=== PATIENT | female | born 1945 | race African-American/Black ===

== ENCOUNTER 2016-08-25 18:18 | Inpatient (IN) | payer OTHER, BC ==
[~2016-08-25] VITALS: Ht 167.6 cm; Wt 72.5 kg
--- NOTE | ~2016-08-25 | H ---
[facility] [place] [address] HISTORY AND PHYSICAL Name: MIKAL CHRISTIAN Room #: 444-P ADM IN M.R.#: [id number] Admission: 08/25/16 Attend Phys: Jean Marie Haile MD Discharge: Date of : 43 Report #: [id number] THIS REPORT FOR: //name// CC: Jean Marie Koch DATE OF SERVICE: 08/25/2016 ATTENDING PHYSICIAN: Jean Marie Haile M.D. PRIMARY CARE PHYSICIAN: Randa Koch M.D. CHIEF COMPLAINT: Left lower extremity swelling. HISTORY OF PRESENT ILLNESS: The patient is a 71-year-old -Maltese female with a history of dementia. Most of the history is obtained by her daughter who is at her bedside. The patient is minimally verbal at her baseline. Apparently, her family noticed some left lower extremity swelling earlier in the week. She did say she was having some ankle pain. She did not have any prior history of blood clots. She did complain a few times that her abdomen hurt and her right shoulder was painful, but she has been eating okay without any nausea, vomiting or diarrhea. In the ER, she was found to have an extensive left lower extremity DVT and was admitted for further treatment. PAST MEDICAL HISTORY: Dementia and hypertension. PAST SURGICAL HISTORY: None. ALLERGIES: STEROIDS, unknown reaction. HOME MEDICATIONS: Donepezil 10 mg at bedtime, Seroquel 25 mg at bedtime, chlordiazepoxide 10 mg at bedtime, Maxzide, 37.5/25 one tab daily and melatonin 5 mg at bedtime. SOCIAL HISTORY: The patient lives at home with her spouse, her children and grandmother. She normally walk with some assistance. She is able to feed herself, but family has to remind her to eat. She is incontinent of bladder and bowel. She is an ex-smoker. FAMILY HISTORY: No family members have ever had any blood clots. REVIEW OF SYSTEMS: Unobtainable due to altered mental status. PHYSICAL EXAMINATION: GENERAL: The patient is a somewhat sleepy female in no acute distress. VITAL SIGNS: Temperature is 36.4, heart rate 93, respirations 20, blood [address] [address] HISTORY AND PHYSICAL Name: MIKAL CHRISTIAN Room #: 444-[facility] IN [facility].#: [id number] Admission: 08/25/16 Attend Phys: Jean Marie Haile MD Discharge: Date of : 43 Report #: [id number] pressure is 133/85 and oxygen 92% on room air. HEENT: PERRLA. Sclerae are nonicteric. Oral mucosa is pink and moist. NECK: Supple, no JVD noted. CARDIOVASCULAR: Normal S1, S2. No murmurs, rubs or gallops. RESPIRATORY: Breath sounds are clear bilaterally. No wheezing or rhonchi. Breathing is nonlabored. ABDOMEN: Soft, nontender and nondistended with positive bowel sounds. VASCULAR: She does have 1+ left lower extremity edema. She did grimace with palpation to her left calf and ankle area. Pedal pulse is 2+. NEUROLOGIC: The patient is sleepy but arouses easily. She did keep her eyes closed during most of the assessment. She could not tell me where she was or tell me her daughter name. She would follow commands and is moving all extremities equally. LABORATORY AND DIAGNOSTIC DATA: WBC 9.9, hemoglobin is 12.9 and platelets 196. INR 1.0. Sodium 140, potassium 3.6, BUN 23 and creatinine 1.3. Glucose 135. LFTs are within normal limits. CK is 63. Troponins negative. Chest x-ray shows mild cardiac prominence. Lungs are clear of acute abnormalities and venous Doppler of the left lower extremity showed extensive left lower extremity DVT and EKG showing sinus rhythm. ASSESSMENT AND PLAN: 1. Left lower extremity deep venous thrombosis. The patient was given a dose of therapeutic Lovenox. We will continue that b.i.d. We did discuss with the family the different anticoagulant options. Because she is likely a fall risk, Coumadin will likely be the best anticoagulant for her. We will start Coumadin daily tomorrow and continue to bridge with Lovenox. She really does not have any symptoms concerning for pulmonary embolism, so we will hold off on any further imaging. 2. Dementia. The patient is at her baseline. 3. Hypertension. We will hold her diuretics since her creatinine is mildly elevated and monitor blood pressure. 4. Mild acute kidney injury. We do not have any prior labs. We will gently hydrate and follow labs. 5. Deep vein thrombosis prophylaxis. Continue with Lovenox and Coumadin. We will continue to follow the patient closely throughout the hospitalization and make changes based on clinical status. By: [id number] Paige Barcenas, KRISTAN /nt
--- NOTE | ~2016-08-25 | EKG ---
[facility] [address] [place] [address] ELECTROCARDIOGRAM REPORT Name: MIKAL CHRISTIAN Room #: 444-P ADM IN M.R.#: [id number] Admission: 08/25/16 Attend Phys: Chepe Holder Discharge: Date of : 44 Report #: [id number] THIS REPORT FOR: //name// 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
[2016-08-25 18:19] VITALS: BP 133/85
[2016-08-25] MEDS ORDERED: CHLORDIAZEPOXID10 MG PO (18:29)
[2016-08-25] MEDS ORDERED: MAXZIDE-25 MG1 EACH PO (18:29)
[2016-08-25] MEDS ORDERED: MELATONIN3 MG PO (18:30)
[2016-08-25] MEDS ORDERED: SEROQUEL 25 MG25 M1 PO (18:30)
[2016-08-25] MEDS ORDERED: ARICEPT10 M1 PO (18:30)
[2016-08-25 19:06] LABS: ABSOLUTE NEUTROPHILS 6.5 thou/uL (1.4-8.2); BASOPHILS 0.7 % (0.0-2.0); EOSINOPHILS 1.3 % (0.0-3.0); HEMATOCRIT 37.8 % (37.0-47.0); HEMOGLOBIN 12.9 gm/dL (12.0-15.0); LYMPHOCYTES 20.5 % (24.0-44.0); MANUAL DIFF NO; MCH 30.1 pg (26.0-34.0); MCHC 34.2 g/dL (28.0-37.0); MONOCYTES 11.3 % (1.0-8.0); PLATELET COUNT 196 thou/uL (150-400); POLYS 66.2 % (36.0-66.0); RDW 13.3 % (10.5-14.5); WBC 9.9 thou/uL (4.0-11.0)
[2016-08-25 19:12] LABS: ANION GAP 8 mmol/L (7-16); BUN 23 mg/dL (7-18); CALCIUM 9.6 mg/dL (8.5-10.1); CHLORIDE 102 mmol/L (98-107); CO2 30 mmol/L (21-32); CREATININE 1.3 mg/dL (0.6-1.0); GLUCOSE 135 mg/dL (74-106); POTASSIUM 3.6 mmol/L (3.5-5.1); SODIUM 140 mmol/L (136-145)
[2016-08-25 19:18] LABS: APTT 24.3 Seconds (24.5-32.8); PROTIME 10.8 Seconds (9.3-11.4)
[2016-08-25 19:25] LABS: ALBUMIN 3.8 g/dL (3.4-5.0); ALKALINE PHOSPHATASE 94 U/L (46-116); NT-PRO BRAIN NAT PEPTIDE 25 pg/mL (<300); SGOT 14 U/L (15-37); SGPT 15 U/L (30-65); TOTAL BILIRUBIN 0.4 mg/dL (<0.1-1.0); TOTAL PROTEIN 8.6 g/dL (6.4-8.2); TROPONIN-I < 0.04 ng/mL (<0.04-0.07)
[2016-08-25 21:09] VITALS: BP 124/70
[2016-08-25 21:50] VITALS: BP 127/78
[2016-08-25 23:35] VITALS: BP 105/70
[2016-08-26 04:42] VITALS: BP 127/79
[2016-08-26 06:51] VITALS: BP 127/79
[2016-08-26 08:00] VITALS: BP 119/72
[2016-08-26 10:52] LABS: FOLIC ACID 12.9 ng/mL (8.6-58.9); TSH 0.523 uIU/mL (0.358-3.740)
[2016-08-26 12:00] VITALS: BP 92/75
[2016-08-26 16:00] VITALS: BP 116/68
[2016-08-26 20:13] VITALS: BP 112/63
[2016-08-27 03:48] VITALS: BP 106/69
[2016-08-27 06:52] LABS: INR 1.1; PROTIME 10.9 Seconds (9.3-11.4)
[2016-08-27 08:00] VITALS: BP 120/66
[2016-08-27 12:00] VITALS: BP 133/55
[2016-08-27 16:00] VITALS: BP 107/66
[2016-08-27 21:03] VITALS: BP 113/81
[2016-08-28 04:31] VITALS: BP 111/65
[2016-08-28 08:00] VITALS: BP 114/65
[2016-08-28] MEDS ORDERED: COUMADIN 5 MG TA5 M1 PO (09:54)
[2016-08-28] MEDS ORDERED: ENOXAPARIN80 MG/0.1 SUBQ (09:54)
[2016-08-28 11:09] LABS: INR 1.1; PROTIME 11.1 Seconds (9.3-11.4)
[2016-08-28 12:35] VITALS: BP 105/64
== END 2016-08-28 14:38 | DRG 299 ==
LOC: ER 18:18 → 4S 20:20 → EROBS 20:20 → 4S 21:34
PROVIDERS: Emergency Medicine; Hospitalist
DX: I82.412 Acute embolism and thrombosis of left femoral vein (principal); N17.0 Acute kidney failure with tubular necrosis; I10 Essential (primary) hypertension; F03.90 Unspecified dementia, unspecified severity, without behavioral disturbance, psychotic disturbance, mood disturbance, and anxiety; Z87.891 Personal history of nicotine dependence; Z88.8 Allergy status to other drugs, medicaments and biological substances
CPT/HCPCS: 10100

== ENCOUNTER 2016-09-23 11:30 | Emergency (ER) | payer OTHER, BC ==
[~2016-09-23] VITALS: Ht 167.6 cm; Wt 56.2 kg
[~2016-09-23 11:30] MED LIST: ARICEPT10 M1 PO; CHLORDIAZEPOXID10 MG PO; COUMADIN 5 MG TA5 M1 PO; ENOXAPARIN80 MG/0.1 SUBQ; MAXZIDE-25 MG1 EACH PO; MELATONIN3 MG PO; SEROQUEL 25 MG25 M1 PO
[2016-09-23 12:47] LABS: HEMOGLOBIN 10.7 gm/dL (12.0-15.0); MCH 30.3 pg (26.0-34.0); MCHC 34.4 g/dL (28.0-37.0); MCV 87.9 fL (80.0-100.0); RBC 3.52 mil/uL (4.20-5.00); RDW 13.5 % (10.5-14.5); WBC 6.2 thou/uL (4.0-11.0)
[2016-09-23 12:56] LABS: CALCIUM 9.1 mg/dL (8.5-10.1); POTASSIUM 3.3 mmol/L (3.5-5.1)
[2016-09-23 13:04] LABS: APTT 38.1 Seconds (24.5-32.8); INR 3.2; PROTIME 33.2 Seconds (9.3-11.4)
== END 2016-09-23 14:15 | disposition home or self-care (01) ==
LOC: ER 11:30
PROVIDERS: Emergency Medicine
DX: I82.492 Acute embolism and thrombosis of other specified deep vein of left lower extremity (principal); F41.9 Anxiety disorder, unspecified; I10 Essential (primary) hypertension; G30.9 Alzheimer's disease, unspecified; F02.80 Dementia in other diseases classified elsewhere, unspecified severity, without behavioral disturbance, psychotic disturbance, mood disturbance, and anxiety; Z88.8 Allergy status to other drugs, medicaments and biological substances; F17.210 Nicotine dependence, cigarettes, uncomplicated

== ENCOUNTER 2017-05-13 18:07 | Inpatient (IN) | payer OTHER, BC ==
[~2017-05-13] VITALS: Ht 172.7 cm; Wt 61.2 kg
--- NOTE | ~2017-05-13 | HC ---
[facility] [place] [address] CONSULTATION Name: MIKAL CHRISTIAN Room #: 446-P [facility] IN M.R.#: [id number] Admission: 05/13/17 Attend Phys: Francisco Vines DO Discharge: 05/18/17 Date of : 43 Report #: [id number] THIS REPORT FOR: //name// CC: Pedrito Koch DATE OF SERVICE: 05/18/2017 HISTORY OF PRESENT ILLNESS: The patient is a 72-year-old -Dominican female with history of dementia, admitted with worsening weakness and family unable to care for her. She was diagnosed with a urinary tract infection. She was noted to have Enterococcus faecalis and has been switched from ampicillin to Rocephin. She is being monitored regarding the hypertension. She has had a prior DVT and is on Coumadin. We are seeing her in rehabilitation medicine consultation. PAST MEDICAL HISTORY: Includes: Alzheimer dementia, insomnia, DVT on warfarin, anxiety, and hypertension. HABITS: Former smoker, quit greater than a year ago. No history of alcohol abuse. ALLERGIES: STEROIDS. SOCIAL HISTORY: She lives in a house with her daughter. They have a caregiver from 8 to 4, 5 days a week and the family cares for her during the other times. The patient premorbidly was able to ambulate short distances surface to surface and then she would go up and down the steps 2 times a day to her bedroom upstairs. No device was utilized, but she always had assistance. Daughter notes that the patient has become weaker and has had difficulty as far as trying to bathe her with decreased strength of getting on to the shower chair as well as decreased functional mobility. REVIEW OF SYSTEMS: Unobtainable with the patient's dementia. PHYSICAL EXAMINATION: GENERAL: A 72-year-old -Dominican female, in no obvious distress. VITAL SIGNS: Last recorded temperature 98.2, pulse 77, respirations 18, blood pressure 109/68. NEUROLOGIC: She is alert. She could not tell me the name of the place. She was cooperative. Appeared to be able to assist with basic range of motion and strengthening as far as manual muscle testing. Upper extremity strength is probably grade 3+/5 and lower extremity is probably 3+/5. Again, it was somewhat difficult to assess. Tone appeared to be somewhat decreased. DTRs are trace to 1. I was unable to assess sensation. She is needing max assist with sit to stand and ambulated 3 feet, max assist. [facility] [address] [place] [address] CONSULTATION Name: MIKAL CHRISTIAN Room #: 446-P [facility] IN [facility].#: [id number] Admission: 05/13/17 Attend Phys: Francisco Vines DO Discharge: 05/18/17 Date of : 44 Report #: [id number] ASSESSMENT: A 72-year-old -Dominican female with the following problem list: 1. Medical complexity with generalized debilitation. 2. Urinary tract infection, Enterococcus faecalis, on IV antibiotics. 3. Deep venous thrombosis, on warfarin. 4. Hypertension. 5. Dementia with Alzheimer's. PLAN: We are considering the patient for an acute in-hospital inpatient rehabilitation stay. We will be glad to follow along with you regarding her rehab therapy needs. <ELECTRONICALLY SIGNED> By: Pedrito Cason MD 05/31/17 1511 1443 2103 Pedrito Cason MD /[facility]
[2017-05-13 18:08] VITALS: BP 127/85
[2017-05-13 18:42] LABS: ABSOLUTE NEUTROPHILS 5.8 thou/uL (1.4-8.2); BASOPHILS 0.7 % (0.0-2.0); EOSINOPHILS 0.9 % (0.0-3.0); HEMATOCRIT 37.5 % (37.0-47.0); HEMOGLOBIN 12.7 gm/dL (12.0-15.0); LYMPHOCYTES 23.3 % (24.0-44.0); MCH 29.4 pg (26.0-34.0); MCV 86.6 fL (80.0-100.0); PLATELET COUNT 251 thou/uL (150-400); POLYS 66.1 % (36.0-66.0); RBC 4.33 mil/uL (4.20-5.00); RDW 13.9 % (10.5-14.5); WBC 8.7 thou/uL (4.0-11.0)
[2017-05-13 18:49] LABS: ANION GAP 9 mmol/L (7-16); BUN 21 mg/dL (7-18); CALCIUM 9.6 mg/dL (8.5-10.1); CHLORIDE 102 mmol/L (98-107); CO2 32 mmol/L (21-32); CREATININE 1.2 mg/dL (0.6-1.0); GLUCOSE 137 mg/dL (74-106); POTASSIUM 3.1 mmol/L (3.5-5.1); SODIUM 143 mmol/L (136-145)
[2017-05-13 18:56] LABS: APTT 39.8 Seconds (24.5-32.8); DIRECT BILIRUBIN < 0.1 mg/dL (<0.1-0.3); INR 2.5; LIPASE 290 U/L (73-393); PROTIME 25.4 Seconds (9.3-11.4); SGOT 21 U/L (15-37); SGPT 18 U/L (30-65); TOTAL BILIRUBIN 0.4 mg/dL (<0.1-1.0); TOTAL PROTEIN 8.3 g/dL (6.4-8.2)
[2017-05-13 19:25] LABS: URINE BILIRUBIN NEGATIVE (Negative); URINE BLOOD 3+ (Negative); URINE COLOR YELLOW; URINE GLUCOSE-RANDOM* NEGATIVE (Negative); URINE KETONES NEGATIVE (Negative); URINE LEUKOCYTES 1+ (Negative); URINE NITRITE NEGATIVE (Negative); URINE PROTEIN (DIPSTICK) NEGATIVE (Negative); URINE UROBILINOGEN 0.2 E.U./dl (0.2-1.0)
[2017-05-13 19:28] LABS: URINE CLARITY HAZY
[2017-05-13 19:31] LABS: BACTERIA >30 Many /HPF (None Seen); CASTS None Seen /LPF (None Seen); CRYSTALS None Seen /LPF (None Seen); SQUAMOUS 0-3 Few /LPF (0-3); URINE RBC 3-10 Few /HPF (0-2); URINE WBC 6-15 Few /HPF (0-5)
[2017-05-13 20:39] VITALS: BP 118/76
[2017-05-13 21:22] VITALS: BP 141/85
[2017-05-13] MEDS ORDERED: CRESTOR10 MG PO (21:58)
[2017-05-13] MEDS ORDERED: MAXZIDE-25 MG1 EACH PO (22:05)
[2017-05-14 00:11] VITALS: BP 112/64
[2017-05-14 04:40] VITALS: BP 126/80
[2017-05-14 08:10] VITALS: BP 134/83
[2017-05-14 15:32] VITALS: BP 108/65
[2017-05-14 15:58] LABS: HEMATOCRIT 33.4 % (37.0-47.0); HEMOGLOBIN 11.4 gm/dL (12.0-15.0); MCH 29.6 pg (26.0-34.0); MCV 87.1 fL (80.0-100.0); RBC 3.83 mil/uL (4.20-5.00); RDW 13.5 % (10.5-14.5); WBC 7.2 thou/uL (4.0-11.0)
[2017-05-14 16:07] LABS: CREATININE 1.2 mg/dL (0.6-1.0)
[2017-05-14 20:53] VITALS: BP 110/68
[2017-05-15 03:54] LABS: HEMATOCRIT 31.1 % (37.0-47.0); HEMOGLOBIN 10.5 gm/dL (12.0-15.0); MCH 29.8 pg (26.0-34.0); MCHC 33.9 g/dL (28.0-37.0); MCV 87.8 fL (80.0-100.0); RBC 3.54 mil/uL (4.20-5.00); RDW 13.8 % (10.5-14.5); WBC 7.1 thou/uL (4.0-11.0)
[2017-05-15 04:04] LABS: CALCIUM 8.5 mg/dL (8.5-10.1); POTASSIUM 3.4 mmol/L (3.5-5.1)
[2017-05-15 04:05] LABS: INR 2.2; PROTIME 22.2 Seconds (9.3-11.4)
[2017-05-15 05:10] VITALS: BP 121/63
[2017-05-15 08:12] VITALS: BP 130/65
[2017-05-15 16:00] VITALS: BP 123/71
[2017-05-16 03:09] LABS: HEMATOCRIT 30.6 % (37.0-47.0); HEMOGLOBIN 10.2 gm/dL (12.0-15.0); MCH 29.3 pg (26.0-34.0); MCHC 33.5 g/dL (28.0-37.0); MCV 87.5 fL (80.0-100.0); RBC 3.49 mil/uL (4.20-5.00); RDW 13.8 % (10.5-14.5)
[2017-05-16 03:28] VITALS: BP 143/75
[2017-05-16 03:29] LABS: CALCIUM 8.1 mg/dL (8.5-10.1); POTASSIUM 3.3 mmol/L (3.5-5.1)
[2017-05-16 08:00] VITALS: BP 128/71
[2017-05-16 16:00] VITALS: BP 142/68
[2017-05-16 20:50] VITALS: BP 160/75
[2017-05-17 04:00] VITALS: BP 147/79
[2017-05-17 06:06] LABS: HEMATOCRIT 33.6 % (37.0-47.0); HEMOGLOBIN 11.3 gm/dL (12.0-15.0); MCH 29.7 pg (26.0-34.0); MCHC 33.8 g/dL (28.0-37.0); MCV 87.9 fL (80.0-100.0); RBC 3.82 mil/uL (4.20-5.00); RDW 13.6 % (10.5-14.5); WBC 9.1 thou/uL (4.0-11.0)
[2017-05-17 06:18] LABS: CALCIUM 8.6 mg/dL (8.5-10.1); POTASSIUM 3.8 mmol/L (3.5-5.1)
[2017-05-17 08:00] VITALS: BP 137/78
[2017-05-17 16:00] VITALS: BP 127/74
[2017-05-17 19:59] VITALS: BP 141/71
[2017-05-18 05:30] LABS: HEMOGLOBIN 10.1 gm/dL (12.0-15.0); MCH 29.5 pg (26.0-34.0); MCHC 33.8 g/dL (28.0-37.0); MCV 87.2 fL (80.0-100.0); RBC 3.44 mil/uL (4.20-5.00); RDW 13.9 % (10.5-14.5); WBC 5.7 thou/uL (4.0-11.0)
[2017-05-18 05:39] LABS: CALCIUM 8.5 mg/dL (8.5-10.1); MAGNESIUM 1.7 mg/dL (1.8-2.4); POTASSIUM 3.6 mmol/L (3.5-5.1)
[2017-05-18 08:30] VITALS: BP 109/68
[2017-05-18 16:45] VITALS: BP 121/68
== END 2017-05-18 17:06 | DRG 689 ==
LOC: ER 18:07 → 4S 19:38 → EROBS 19:38 → 4S 20:44
PROVIDERS: Emergency Medicine; Hospitalist; Internal Medicine; Nurse Practitioner Family
DX: N39.0 Urinary tract infection, site not specified (principal); G93.41 Metabolic encephalopathy; F41.9 Anxiety disorder, unspecified; I10 Essential (primary) hypertension; G30.9 Alzheimer's disease, unspecified; E87.6 Hypokalemia; B95.2 Enterococcus as the cause of diseases classified elsewhere; G47.00 Insomnia, unspecified; F02.80 Dementia in other diseases classified elsewhere, unspecified severity, without behavioral disturbance, psychotic disturbance, mood disturbance, and anxiety; Z79.899 Other long term (current) drug therapy; Z87.891 Personal history of nicotine dependence; Z86.718 Personal history of other venous thrombosis and embolism; Z28.21 Immunization not carried out because of patient refusal
CPT/HCPCS: 10195

== ENCOUNTER 2017-05-18 15:21 | Inpatient (IN) | payer OTHER, BC ==
[~2017-05-18] VITALS: Ht 172.7 cm; Wt 72.7 kg
--- NOTE | ~2017-05-18 | H ---
[facility] [place] [address] HISTORY AND PHYSICAL Name: MIKAL CHRISTIAN Room #: 513-P [facility] IN M.R.#: [id number] Admission: 05/18/17 Attend Phys: Pedrito Cason MD Discharge: 05/21/17 Date of : 43 Report #: [id number] THIS REPORT FOR: //name// [facility] DATE OF SERVICE: 05/18/2017 HISTORY OF PRESENT ILLNESS: The patient is a 72-year-old -Palestinian female with a prior history of dementia, nevertheless living in the community with her family. She was admitted with worsening weakness and inability for her family to care for her. She was diagnosed with an Enterococcus faecalis urinary tract infection and was placed on ampicillin and switched to Rocephin. She was being monitored regarding hypertension. She has had a prior DVT, on Coumadin. She was monitored regarding electrolyte abnormalities. She was noted to have a significant functional decline and with her medical complexity and generalized debilitation has been admitted for acute in-hospital inpatient rehabilitation. PAST MEDICAL HISTORY: Includes Alzheimer dementia, nevertheless living in the community, insomnia, DVT on warfarin, anxiety, hypertension. HABITS: Former smoker, quit greater than a year ago. No history of alcohol abuse. ALLERGIES: STEROIDS. SOCIAL HISTORY: She lives in a house with her daughter. They have a caregiver from [facility], five days a week and the family cares for her during the other times. The patient premorbidly was able to ambulate short distances surface to surface and then she would go up and down the steps twice a day to her bedroom upstairs. No device was utilized, but she always had assistance. Daughter notes that the patient had become weaker and they were having difficulty trying to bathe her as she has decreased strength getting into the shower chair as well as decreased functional mobility. REVIEW OF SYSTEMS: Unobtainable with the patient's dementia. PHYSICAL EXAMINATION: GENERAL: A 72-year-old -Palestinian female in no obvious distress. VITAL SIGNS: Last recorded temperature is 97.4, pulse 91, respirations 20, blood pressure 127/68. NEUROLOGIC: The patient is alert. She is cooperative. She was able to converse basic statements. Appeared to be able to follow basic 1 step commands. She was able to cooperate with basic testing for the most part regarding volitional strength. HEENT: Facies appeared symmetric. [facility] [address] [place] [address] HISTORY AND PHYSICAL Name: MIKAL CHRISTIAN Room #: 513-P [facility] IN [facility].#: [id number] Admission: 05/18/17 Attend Phys: Pedrito Cason MD Discharge: 05/21/17 Date of : 44 Report #: [id number] CHEST: Sounded clear to auscultation. CARDIOVASCULAR: Regular rate and rhythm. ABDOMEN: Bowel sounds positive, nontender. GENITOURINARY AND RECTAL: Deferred. EXTREMITIES: Upper extremity strength is probably a grade 3+/5. Lower extremities is probably 3+. Tone appeared somewhat decreased. DTRs are trace to 1. I was unable to assess sensation. She is needing max assist with sit to stand and ambulated 3 feet, max assist. ASSESSMENT: A 72-year-old -Palestinian female admitted with the following problem list: 1. Medical complex with generalized debilitation. 2. Urinary tract infection, Enterococcus faecalis has been on IV antibiotics for which she is continuing on the IV ampicillin. 3. Deep venous thrombosis, on warfarin. 4. Hypertension. 5. Electrolyte abnormalities. 6. Dementia with Alzheimer's, nevertheless living in the community with family support. PLAN: The patient has been admitted for acute in-hospital inpatient rehabilitation. From a post admission physician evaluation perspective, there are no relevant changes since the preadmission screening. Please see the above review of prior and current medical and functional conditions and comorbidities. Please see the patient's previous and current functional status. As far as risk of complications, the patient has multiple medical comorbidities as noted above. Initial plan of care involves the interdisciplinary acute inpatient rehabilitation program with the goal of maximizing her functional independence, so she can hopefully return back to her prior living situation. Measurable functional goals would be for the patient to become modified independent with transfers, mobility and ADLs that she can hopefully return back to her prior living situation. Prognosis is reasonably good with estimated length of stay probably at least 10 days to 2 weeks and potentially longer as needed. Potential barriers would include her above noted comorbidities and decreased functional status. The patient meets diagnostic criteria for an acute in-hospital inpatient rehabilitation stay. She does meet the medical necessity criteria and we will have Internal Medicine closely follow with the above noted medical comorbidities. She has the tolerance for therapies and this was specifically looked at as we evaluated her prior to bringing her to the acute inpatient rehab [address] [place] [address] HISTORY AND PHYSICAL Name: MIKAL CHRISTIAN Room #: 513-P [facility] IN M.R.#: [id number] Admission: 05/18/17 Attend Phys: Pedrito Cason MD Discharge: 05/21/17 Date of : 43 Report #: [id number] vazquez. She also has appropriate discharge goals back to the home setting and I had further discussion with the patient's daughter regarding this today. <ELECTRONICALLY SIGNED> By: Pedrito Cason MD 05/31/17 1509 1000 1022 Pedrito Cason MD /[facility]
--- NOTE | ~2017-05-18 | PLAN ---
[facility] [place] [address] REHAB UNIT PLAN OF CARE Name: MIKAL CHRISTIAN Room #: 513-P [facility] IN M.R.#: [id number] Admission: 05/18/17 Attend Phys: Pedrito Cason MD Discharge: 05/21/17 Date of : 43 Report #: [id number] THIS REPORT FOR: //name// [facility] DATE OF SERVICE: 05/21/2017 PROGRESS NOTE/OVERALL PLAN OF CARE: The patient was seen this morning in followup. She is pleasant. Will follow basic 1 step commands. She has not done very well as far as following actual commands in therapies. Upon discussion with the therapist, it appears that this level of rehabilitation is too much for her and she has been able to show any carryover or tolerate the current program. DIAGNOSES: 1. Medical complex with generalized debilitation. 2. Urinary tract infection, Enterococcus faecalis, on IV antibiotics. 3. DVT, on warfarin. 4. Hypertension. 5. Electrolyte abnormalities. 6. Dementia with Alzheimer's, nevertheless living in the community with family support. PLAN: The overall plan of care is based on the preadmission screen, post-admission physician evaluation and information garnered from therapy assessments. Estimated length of stay is probably today or tomorrow to have her be discharged to a skilled facility. Her medical prognosis for an acute inpatient rehabilitation stay is not really very good as she simply cannot tolerate this level. The plan is for her to be discharged to a skilled level of care and this is currently being worked on with case management involvement with family. <ELECTRONICALLY SIGNED> By: Pedrito Cason MD 05/31/17 1509 1104 1248 Pedrito Cason MD /PMT
[~2017-05-18 15:21] MED LIST changes: +CRESTOR10 MG PO
[2017-05-18 17:00] VITALS: BP 117/73
[2017-05-18 19:45] VITALS: BP 127/68
[2017-05-19 06:04] LABS: HEMATOCRIT 27.6 % (37.0-47.0); HEMOGLOBIN 9.6 gm/dL (12.0-15.0); MCHC 34.8 g/dL (28.0-37.0); MCV 86.2 fL (80.0-100.0); RBC 3.2 mil/uL (4.20-5.00); RDW 13.9 % (10.5-14.5); WBC 5.3 thou/uL (4.0-11.0)
[2017-05-19 06:11] LABS: CALCIUM 8.2 mg/dL (8.5-10.1); CREATININE 0.8 mg/dL (0.6-1.0); POTASSIUM 3.4 mmol/L (3.5-5.1)
[2017-05-19 08:00] VITALS: BP 135/82
[2017-05-19 19:29] VITALS: BP 154/92
[2017-05-20 07:10] LABS: TSH 1.027 uIU/mL (0.358-3.740)
[2017-05-20 08:00] VITALS: BP 127/76
[2017-05-20 12:20] LABS: INR 1.7; PROTIME 17.7 Seconds (9.3-11.4)
[2017-05-20 20:26] VITALS: BP 155/59
[2017-05-21 06:14] LABS: HEMATOCRIT 28.9 % (37.0-47.0); HEMOGLOBIN 9.9 gm/dL (12.0-15.0); MCH 29.8 pg (26.0-34.0); MCHC 34.2 g/dL (28.0-37.0); MCV 87.3 fL (80.0-100.0); RBC 3.31 mil/uL (4.20-5.00); RDW 13.6 % (10.5-14.5); WBC 5.8 thou/uL (4.0-11.0)
[2017-05-21 06:24] LABS: INR 1.8; PROTIME 18.7 Seconds (9.3-11.4)
[2017-05-21 06:29] LABS: CALCIUM 8.9 mg/dL (8.5-10.1); CREATININE 0.9 mg/dL (0.6-1.0); MAGNESIUM 1.8 mg/dL (1.8-2.4); POTASSIUM 3.4 mmol/L (3.5-5.1)
[2017-05-21 08:00] VITALS: BP 130/74
[2017-05-21 08:36] VITALS: BP 130/74
[2017-05-21] MEDS ORDERED: K-DUR 20 MEQ T20 MEQ PO (16:25)
[2017-05-21] MEDS ORDERED: AUGMENTIN400 MG/53 PO (16:25)
== END 2017-05-21 17:38 | DRG 948 ==
PROVIDERS: Internal Medicine; Physical Medicine & Rehabilitation; Registered Nurse
DX: R53.81 Other malaise (principal); N39.0 Urinary tract infection, site not specified; I10 Essential (primary) hypertension; G30.9 Alzheimer's disease, unspecified; F02.80 Dementia in other diseases classified elsewhere, unspecified severity, without behavioral disturbance, psychotic disturbance, mood disturbance, and anxiety; E87.8 Other disorders of electrolyte and fluid balance, not elsewhere classified; B95.2 Enterococcus as the cause of diseases classified elsewhere; G47.00 Insomnia, unspecified; F41.9 Anxiety disorder, unspecified; F22 Delusional disorders; E87.6 Hypokalemia; Z87.891 Personal history of nicotine dependence; Z86.718 Personal history of other venous thrombosis and embolism; Z88.8 Allergy status to other drugs, medicaments and biological substances
CPT/HCPCS: 10112

== ENCOUNTER 2017-07-23 15:58 | Inpatient (IN) | payer OTHER, BC ==
[~2017-07-23] VITALS: Ht 170.2 cm; Wt 64.4 kg
--- NOTE | ~2017-07-23 | EKG ---
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: BARBARA : 1945 Requested By: Jennifer Wilkes Order Number: [id number] MD: Tio Sethi Measurements Intervals [place] Rate: 85 P: 58 VA: 127 QRS: 10 QRSD: 89 T: 83 QT: 367 QTc: 437 Interpretive Statements Sinus rhythm Nonspecific T abnrm, anterolateral leads Compared to ECG 08/25/2016 19:23:08 Left ventricular hypertrophy no longer present T-wave abnormality no longer present Electronically Signed On 07-24-2017 13:22:26 SPED TEACHER by Tio Sethi [email or web address] <ELECTRONICALLY SIGNED> By: Tio Sethi MD 07/24/17 1322 170 1701 Tio Sethi MD /EPI
--- NOTE | ~2017-07-23 | HC ---
[facility] [place] [address] CONSULTATION Name: MIKAL CHRISTIAN Room #: 432-P [facility] IN M.R.#: [id number] Admission: 07/23/17 Attend Phys: Francisco Vines DO Discharge: 07/27/17 Date of : 43 Report #: [id number] THIS REPORT FOR: //name// CC: Francisco Koch DATE OF SERVICE: 07/24/2017 HISTORY OF PRESENT ILLNESS: This is a 72-year-old female patient who was evaluated by me for the possibility of seizure. The history is from the daughter. Apparently, this patient was noticed to have seizure activity. There is no firsthand witness to that. It lasted about 5 minutes. It came spontaneously without any trauma. She is still having mild intermittent jerking. It is not clear how long that is going on. REVIEW OF SYSTEMS: Indicate that this patient has been diagnosed with Alzheimer's dementia. She was living at home until last year, but needed a lot of help in day-to-day activity since April as I understand she is in a long-term. She has a history of DVT and she is on anticoagulation for that. She did have a urinary tract infection at one time and that did decompensate her. Even now, her white count is more than 25. She is being treated for that. She does have some psychiatric issues and she takes medication for that. Her ambulation is impaired. Her memory even in the baseline is very significantly impaired. This was her relevant 14-point review of system, which I carried out. PAST MEDICAL HISTORY: What looked like severe dementia. FAMILY HISTORY: Negative for early age dementia. SOCIAL HISTORY: She lives in a long-term. PHYSICAL EXAMINATION: The patient's examination is limited. She is alert. She is responsive. She cannot follow simple commands and that makes the examination very difficult. She has virtually no memory. Cranial nerve examination 2-12 was attempted. She did not cooperate, is very difficult to tell, but I do not see any focality. She moves all four extremities, is not possible to check the sensory or tone or reflexes because she does not relax. She does not understand the instructions for cerebellar sign. She could not cooperate with the fundus examination. She is moderately well-developed individual whose hearing and vision looks adequate. She has no edema, cyanosis or jaundice. Blood pressure is 113/64, respirations 18, pulse is 63, temperature is 98.1. LABORATORY DATA: Her hemoglobin is 9.6. Her last vitamin B12 in 2017 was 293, which is on the lower side of the normal. Her last INR was 1.8. Her CT scan of the head showed atrophy and MRI of the head also showed atrophy. [address] [address] CONSULTATION Name: MIKAL CHRISTIAN Lianet Room #: 432-P [facility] IN M.R.#: [id number] Admission: 07/23/17 Attend Phys: Francisco Vines DO Discharge: 07/27/17 Date of : 43 Report #: [id number] IMPRESSION: Jerking movement with a seizure-like activity. Significant percentage of the patient with dementia ultimately developed seizure and I think that she may be doing that. It does not look like she has any other evidence for Creutzfeldt-Linus disease. 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 RECOMMENDATIONS: EEG is typically normal in this patient. We will go ahead and do the EEG. If EEG shows seizure activity, she needs to be on some stronger anticonvulsant, but if EEG is normal, I will still suggest anticonvulsant probably with Lamictal that time. I discussed all of it with the patient and the family and she understands it and she wants to follow this plan. <ELECTRONICALLY SIGNED> By: Steve Guillaume MD 07/31/17 1549 1157 21 Steve Guillaume MD /nt
--- NOTE | ~2017-07-23 | EEG ---
[facility] [place] [address] ELECTROENCEPHALOGRAM Name: MIKAL CHRISTIAN Room #: 432-P [facility] IN M.R.#: [id number] Admission: 07/23/17 Attend Phys: Francisco Vines DO Discharge: 07/27/17 Date of : 43 Report #: [id number] THIS REPORT FOR: //name// CC: Francisco Koch DATE OF SERVICE: 07/24/2017 This patient is being evaluated for the possibility of seizure. EEG was done by placing the electrodes by standard 10-20 system of electrode placement. Both referential and sequential montages were used for recording. Background activity in this patient's EEG is about 8 Hz and 30 microvolt. It is a symmetrical activity. Photic stimulation was unremarkable. The patient went to sleep that is associated with bilaterally symmetrical sleep spindle and vertex sharp waves. The patient's EEG does appear to be showing seizure activities with episodic sharp waves, which are sporadic. IMPRESSION: This patient's EEG is slow and poorly formed. That is a nonspecific finding which can occur with encephalopathy, effect of psychotropic medication, dementia, etc. The patient also appeared to be having epileptiform activity arising sporadically. Thank you very much for this referral. <ELECTRONICALLY SIGNED> By: Steve Guillaume MD 07/31/17 1552 1233 1650 Steve Guillaume MD /nt
[~2017-07-23 15:58] MED LIST changes: +AUGMENTIN400 MG/53 PO; +K-DUR 20 MEQ T20 MEQ PO
[2017-07-23 15:59] VITALS: BP 119/71
[2017-07-23 16:24] LABS: ABSOLUTE NEUTROPHILS 5.8 thou/uL (1.4-8.2); BASOPHILS 0.6 % (0.0-2.0); EOSINOPHILS 1.6 % (0.0-3.0); HEMATOCRIT 33.8 % (37.0-47.0); HEMOGLOBIN 11.4 gm/dL (12.0-15.0); LYMPHOCYTES 21.9 % (24.0-44.0); MCH 29.2 pg (26.0-34.0); MCHC 33.6 g/dL (28.0-37.0); MCV 86.9 fL (80.0-100.0); MONOCYTES 8.6 % (1.0-8.0); POLYS 67.3 % (36.0-66.0); RBC 3.89 mil/uL (4.20-5.00); RDW 14.6 % (10.5-14.5); WBC 8.6 thou/uL (4.0-11.0)
[2017-07-23 16:33] LABS: ANION GAP 9 mmol/L (7-16); BUN 15 mg/dL (7-18); CALCIUM 9.6 mg/dL (8.5-10.1); CHLORIDE 102 mmol/L (98-107); CO2 30 mmol/L (21-32); CREATININE 1.1 mg/dL (0.6-1.0); GLUCOSE 135 mg/dL (74-106); POTASSIUM 3.6 mmol/L (3.5-5.1); SODIUM 141 mmol/L (136-145)
[2017-07-23 16:38] LABS: URINE BILIRUBIN NEGATIVE (Negative); URINE BLOOD 2+ (Negative); URINE CLARITY CLEAR; URINE COLOR YELLOW; URINE GLUCOSE-RANDOM* NEGATIVE (Negative); URINE KETONES NEGATIVE (Negative); URINE LEUKOCYTES 1+ (Negative); URINE NITRITE POSITIVE (Negative); URINE PROTEIN (DIPSTICK) NEGATIVE (Negative); URINE UROBILINOGEN 0.2 E.U./dl (0.2-1.0)
[2017-07-23 16:43] LABS: PLATELET COUNT 289 thou/uL (150-400)
[2017-07-23 16:44] LABS: ALBUMIN 3.6 g/dL (3.4-5.0); MAGNESIUM 2.1 mg/dL (1.8-2.4); SGOT 13 U/L (15-37); SGPT 17 U/L (30-65); TOTAL BILIRUBIN 0.2 mg/dL (<0.1-1.0); TOTAL PROTEIN 8.3 g/dL (6.4-8.2); TROPONIN-I < 0.04 ng/mL (<0.06)
[2017-07-23 16:49] LABS: BACTERIA >30 Many /HPF (None Seen); CASTS None Seen /LPF (None Seen); SQUAMOUS 0-3 Few /LPF (0-3); URINE RBC 3-10 Few /HPF (0-2); URINE WBC >25 Many /HPF (0-5)
[2017-07-23 16:50] LABS: CRYSTALS None Seen /LPF (None Seen)
[2017-07-23 18:09] VITALS: BP 143/69
[2017-07-23 18:11] LABS: INR 1.8; PROTIME 17.8 Seconds (9.3-11.4)
[2017-07-23 19:21] VITALS: BP 151/80
[2017-07-23 20:00] VITALS: BP 137/70
[2017-07-24 04:28] VITALS: BP 120/72
[2017-07-24 05:22] LABS: ABSOLUTE NEUTROPHILS 4.6 thou/uL (1.4-8.2); BASOPHILS 0.3 % (0.0-2.0); EOSINOPHILS 2.1 % (0.0-3.0); HEMATOCRIT 28.9 % (37.0-47.0); HEMOGLOBIN 9.6 gm/dL (12.0-15.0); LYMPHOCYTES 31.8 % (24.0-44.0); MCH 29.1 pg (26.0-34.0); MCHC 33.3 g/dL (28.0-37.0); MCV 87.6 fL (80.0-100.0); MONOCYTES 10.8 % (1.0-8.0); PLATELET COUNT 231 thou/uL (150-400); RBC 3.31 mil/uL (4.20-5.00); RDW 14.6 % (10.5-14.5); WBC 8.3 thou/uL (4.0-11.0)
[2017-07-24 05:36] LABS: POTASSIUM 3.8 mmol/L (3.5-5.1)
[2017-07-24 08:21] VITALS: BP 113/64
[2017-07-24 16:37] VITALS: BP 113/64
[2017-07-24 20:18] VITALS: BP 120/76
[2017-07-25 04:12] VITALS: BP 119/68
[2017-07-25 05:16] LABS: ABSOLUTE NEUTROPHILS 3.3 thou/uL (1.4-8.2); BASOPHILS 0.5 % (0.0-2.0); EOSINOPHILS 2.9 % (0.0-3.0); HEMATOCRIT 30.1 % (37.0-47.0); LYMPHOCYTES 35.3 % (24.0-44.0); MCHC 33.3 g/dL (28.0-37.0); MONOCYTES 9.7 % (1.0-8.0); PLATELET COUNT 237 thou/uL (150-400); POLYS 51.6 % (36.0-66.0); RBC 3.46 mil/uL (4.20-5.00); RDW 14.7 % (10.5-14.5); WBC 6.4 thou/uL (4.0-11.0)
[2017-07-25 05:28] LABS: CALCIUM 9.1 mg/dL (8.5-10.1); CREATININE 0.9 mg/dL (0.6-1.0); POTASSIUM 3.7 mmol/L (3.5-5.1)
[2017-07-25 08:15] VITALS: BP 124/78
[2017-07-25 15:36] VITALS: BP 142/75
[2017-07-25 20:00] VITALS: BP 107/73
[2017-07-26 04:30] VITALS: BP 121/82
[2017-07-26 06:05] LABS: ABSOLUTE NEUTROPHILS 3.6 thou/uL (1.4-8.2); BASOPHILS 0.4 % (0.0-2.0); EOSINOPHILS 3.5 % (0.0-3.0); HEMATOCRIT 31.2 % (37.0-47.0); HEMOGLOBIN 10.5 gm/dL (12.0-15.0); LYMPHOCYTES 29.5 % (24.0-44.0); MCH 28.9 pg (26.0-34.0); MCHC 33.5 g/dL (28.0-37.0); MONOCYTES 10.1 % (1.0-8.0); PLATELET COUNT 243 thou/uL (150-400); POLYS 56.5 % (36.0-66.0); RBC 3.63 mil/uL (4.20-5.00); RDW 14.5 % (10.5-14.5); WBC 6.3 thou/uL (4.0-11.0)
[2017-07-26 06:27] LABS: CALCIUM 9.3 mg/dL (8.5-10.1); POTASSIUM 3.7 mmol/L (3.5-5.1)
[2017-07-26 07:43] VITALS: BP 116/85
[2017-07-26 15:14] VITALS: BP 120/68
[2017-07-26 19:35] VITALS: BP 116/64
[2017-07-27 03:10] VITALS: BP 106/63
[2017-07-27 05:52] LABS: CALCIUM 9.1 mg/dL (8.5-10.1); POTASSIUM 3.9 mmol/L (3.5-5.1)
[2017-07-27 06:03] LABS: ABSOLUTE NEUTROPHILS 3.2 thou/uL (1.4-8.2); BASOPHILS 0.4 % (0.0-2.0); EOSINOPHILS 3.8 % (0.0-3.0); HEMATOCRIT 30.5 % (37.0-47.0); HEMOGLOBIN 10.4 gm/dL (12.0-15.0); MCH 29.4 pg (26.0-34.0); MCHC 34.1 g/dL (28.0-37.0); MCV 86.5 fL (80.0-100.0); MONOCYTES 9.2 % (1.0-8.0); PLATELET COUNT 229 thou/uL (150-400); POLYS 53.6 % (36.0-66.0); RBC 3.52 mil/uL (4.20-5.00); RDW 14.3 % (10.5-14.5)
[2017-07-27 07:55] VITALS: BP 103/56
[2017-07-27 08:38] VITALS: BP 103/56
[2017-07-27] MEDS ORDERED: KEFLEX500 M1 PO (09:02)
[2017-07-27] MEDS ORDERED: KEPPRA 500 MG500 M1 PO (09:02)
[2017-07-27] MEDS ORDERED: CHLORDIAZEPOXID10 MG PO (12:32)
[2017-07-27] MEDS ORDERED: SEROQUEL 25 MG25 M1 PO (12:32)
== END 2017-07-27 14:17 | DRG 871 ==
LOC: ER 15:58 → 4E 17:31 → EROBS 17:31 → 4E 19:29
PROVIDERS: Family Medicine; Nurse Practitioner Family
DX: A41.9 Sepsis, unspecified organism (principal); G93.40 Encephalopathy, unspecified; N39.0 Urinary tract infection, site not specified; R56.9 Unspecified convulsions; F41.9 Anxiety disorder, unspecified; I10 Essential (primary) hypertension; F22 Delusional disorders; Z66 Do not resuscitate; G30.9 Alzheimer's disease, unspecified; F02.80 Dementia in other diseases classified elsewhere, unspecified severity, without behavioral disturbance, psychotic disturbance, mood disturbance, and anxiety; G47.00 Insomnia, unspecified; Z86.718 Personal history of other venous thrombosis and embolism; Z88.8 Allergy status to other drugs, medicaments and biological substances; Z87.891 Personal history of nicotine dependence; Z79.899 Other long term (current) drug therapy; Z28.21 Immunization not carried out because of patient refusal
CPT/HCPCS: 10084